=== PATIENT | male | born 1960 | race Caucasian/White ===

== ENCOUNTER 2020-07-13 07:52 | Outpatient (REF) | payer BC, SELFPAY | END 2020-07-13 07:53 | disposition home or self-care (01) | LOC: HO.LAB 07:52 | PROVIDERS: PCP Internal Medicine; Visit Provider Internal Medicine | DX: Z20.828 Contact with and (suspected) exposure to other viral communicable diseases (principal) | CPT/HCPCS: U0003 ==

== ENCOUNTER 2021-06-15 10:42 | Outpatient (REF) | payer BC, SELFPAY ==
[2021-06-15 10:44] LABS: MANUAL DIFF FLAG NO
[2021-06-15 11:11] LABS: Basophils Percent Auto 0.8 % (0-2); Eosinophils Absolute Auto 0.2 X10*3/uL (0.0-0.4); Eosinophils Percent Auto 3.9 % (0-4); Hematocrit 46.2 % (42-52); Hemoglobin 15.7 g/dl (14.0-18.0); Imm Gran Abs Auto 0.02 X10*3/uL (0.00-0.03); Imm Gran Pct Auto 0.4 % (0.0-0.4); Lymphocytes Absolute Auto 1.6 X10*3/uL (1.2-4.9); Lymphocytes Percent Auto 31.2 % (20-40); Mean Corpuscular Volume 94.1 fL (80-98); Mean Platelet Volume 11.6 fL (9.4-12.4); Monocytes Absolute Auto 0.5 X10*3/uL (0.1-1.2); Monocytes Percent Auto 9.7 % (2-11); Neutrophils Absolute Auto 2.8 X10*3/uL (2.0-8.3); Platelet Count 180 X10*3/uL (160-400); Red Blood Count 4.91 X10*6/uL (4.60-5.80); Red Cell Distribution Width 12.4 % (11.0-16.0); White Blood Count 5.2 X10*3/uL (4.8-10.8)
[2021-06-15 11:22] LABS: Estimated Average Glucose 105 mg/dL; Hemoglobin A1c % 5.3 %
[2021-06-15 11:42] LABS: Appearance Urine CLEAR; Color Urine YELLOW; Glucose Urine UA NEG (NEG); Leukocyte Esterase Urine NEG (NEG); Nitrite Urine NEG (NEG); Specific Gravity - Urine 1.025 (1.005-1.025); Urine Blood NEG (NEG); Urine Ketones NEG (NEG); Urine Protein NEG (NEG-TRACE)
[2021-06-15 11:49] LABS: Alanine Aminotransferase 30 U/L (0-40); Albumin Level 4.3 g/dL (3.5-5.0); Alkaline Phosphatase 69 U/L (39-117); Anion Gap 12 (12-20); Aspartate Amino Transferase 29 U/L (5-37); Bilirubin Total 1.8 mg/dL (0.0-1.0); Blood Urea Nitrogen 10 mg/dL (9-16); Calcium 9.5 mg/dL (8.4-10.2); Carbon Dioxide 25 mmol/L (22-29); Chloride 108 mmol/L (96-108); Cholesterol 209 mg/dL; Estimated Glomerular Filt Rate > 60; Glucose Fasting 107 mg/dL (60-99); HDL Cholesterol 64 mg/dL; LDL Cholesterol Calculated 127 mg/dl; Potassium 4.5 mmol/L (3.3-5.1); Sodium 140 mmol/L (135-145); Triglycerides 93 mg/dL
[2021-06-15 12:11] LABS: PSA,Total (Free>4and<10) 0.79 ng/mL (0.00-4.00)
[2021-06-15 12:29] LABS: Microalbum/Creatinine Ratio Ur 5.3 ug/mg cr
== END 2021-06-15 10:43 | disposition home or self-care (01) ==
LOC: HO.LNP 10:42
PROVIDERS: Visit Provider Internal Medicine
DX: Z00.00 Encounter for general adult medical examination without abnormal findings (principal); R73.03 Prediabetes; E80.4 Gilbert syndrome; I10 Essential (primary) hypertension; Z12.5 Encounter for screening for malignant neoplasm of prostate
CPT/HCPCS: 80053; 80061; 81003; 82043; 83036; 84153; 85025

== ENCOUNTER 2022-06-17 11:40 | Outpatient (REF) | payer BC, SELFPAY ==
[2022-06-17 11:46] LABS: MANUAL DIFF FLAG NO
[2022-06-17 12:06] LABS: Basophils Percent Auto 0.3 % (0-2); Eosinophils Absolute Auto 0.2 X10*3/uL (0.0-0.4); Eosinophils Percent Auto 1.9 % (0-4); Hematocrit 47.6 % (42.0-52.0); Imm Gran Abs Auto 0.03 X10*3/uL (0.00-0.03); Imm Gran Pct Auto 0.3 % (0.0-0.4); Lymphocytes Absolute Auto 1.9 X10*3/uL (1.2-4.9); Lymphocytes Percent Auto 20.8 % (20-40); Mean Corpuscular HGB Conc 33.6 g/dl (31.0-36.0); Mean Corpuscular Hemoglobin 31.3 pg (27.0-33.0); Mean Platelet Volume 11.4 fL (9.4-12.4); Monocytes Absolute Auto 0.7 X10*3/uL (0.1-1.2); Monocytes Percent Auto 7.5 % (2-11); Neutrophils Absolute Auto 6.2 x10*3/uL (2.0-8.3); Neutrophils Percent Auto 69.2 % (45-73); Platelet Count 211 X10*3/uL (160-400); Red Blood Count 5.12 X10*6/uL (4.60-5.80); Red Cell Distribution Width 12.6 % (11.0-16.0)
[2022-06-17 12:08] LABS: Appearance Urine Clear; Color Urine Yellow; Glucose Urine UA Negative (Negative); Leukocyte Esterase Urine Trace (Negative); Nitrite Urine Negative (Negative); UMIC TRIGGER UA YES; Urine Blood Negative (Negative); Urine Ketones Negative (Negative); Urine Protein Trace mg/dL (Neg-Trace)
[2022-06-17 12:11] LABS: Bacteria Urine None Seen (None Seen); Hyaline Casts Urine 0-2 /LPF (0-2); RBC Urine 0-2 /HPF (0-2); Squamous Epithelial Cell Urine 0-2 /HPF (0-2); WBC Urine 0-5 /HPF (0-5)
[2022-06-17 12:18] LABS: Alanine Aminotransferase 27 U/L (0-40); Albumin Level 4.4 g/dL (3.5-5.0); Alkaline Phosphatase 65 U/L (39-117); Anion Gap 16 (12-20); Aspartate Amino Transferase 26 U/L (5-37); Bilirubin Total 1.2 mg/dL (0.0-1.0); Blood Urea Nitrogen 11 mg/dL (9-16); Calcium 9.5 mg/dL (8.4-10.2); Carbon Dioxide 24 mmol/L (22-29); Chloride 105 mmol/L (96-108); Cholesterol 228 mg/dL; Estimated Glomerular Filt Rate > 60; Glucose Fasting 99 mg/dL (60-99); HDL Cholesterol 62 mg/dL; LDL Cholesterol Calculated 146 mg/dl; Potassium 4.6 mmol/L (3.3-5.1); Sodium 140 mmol/L (135-145); Total Protein 7.1 g/dL (6.5-8.0); Triglycerides 101 mg/dL
[2022-06-17 12:19] LABS: Estimated Average Glucose 105 mg/dL; Hemoglobin A1c % 5.3 %
[2022-06-17 12:38] LABS: PSA,Total (Free>4and<10) 0.76 ng/mL (0.00-4.00)
[2022-06-17 13:19] LABS: Creatinine Urine 178.83 mg/dL; Microalbum/Creatinine Ratio Ur 3.9 ug/mg cr
== END 2022-06-17 11:41 | disposition home or self-care (01) ==
LOC: HO.LNP 11:40
PROVIDERS: Visit Provider Internal Medicine
DX: Z00.00 Encounter for general adult medical examination without abnormal findings (principal); R73.09 Other abnormal glucose; E80.4 Gilbert syndrome; I10 Essential (primary) hypertension; Z12.5 Encounter for screening for malignant neoplasm of prostate
CPT/HCPCS: 80053; 80061; 81001; 82043; 83036; 84153; 85025

== ENCOUNTER 2023-06-20 11:15 | Outpatient (REF) | payer MEDICARE, SELFPAY | END 2023-06-20 11:16 | disposition home or self-care (01) | LOC: HO.LNP 11:15 | PROVIDERS: Visit Provider Internal Medicine | DX: Z00.00 Encounter for general adult medical examination without abnormal findings (principal); R73.03 Prediabetes; I10 Essential (primary) hypertension; Z12.5 Encounter for screening for malignant neoplasm of prostate | CPT/HCPCS: 80053; 80061; 81001; 82043; 82570; 83036; 84153; 85025 ==

== ENCOUNTER 2023-07-24 12:20 | Outpatient (REF) | payer MEDICARE, SELFPAY ==
--- NOTE | ~2023-07-24 | XR_ITS ---
EXAMINATION: Left knee CLINICAL INFORMATION: Pain COMPARISON: MRI from 11/14/2016 and radiographs from 11/10/2016 TECHNIQUE: AP bilateral weightbearing, sunrise and lateral views of left knee. Line findings: Upright weightbearing view of both knees revealed no abnormal findings. Lateral and sunrise view demonstrate enthesopathy of the patella and mild narrowing of lateral aspect of patellofemoral joint. 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
--- NOTE | ~2023-07-24 | XR_ITS ---
EXAMINATION: Left knee CLINICAL INFORMATION: Pain COMPARISON: MRI from 11/14/2016 and radiographs from 11/10/2016 TECHNIQUE: AP bilateral weightbearing, sunrise and lateral views of left knee. Line findings: Upright weightbearing view of both knees revealed no abnormal findings. Lateral and sunrise view demonstrate enthesopathy of the patella and mild narrowing of lateral aspect of patellofemoral joint. 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
== END 2023-07-24 12:21 | disposition home or self-care (01) ==
LOC: HO.HOSX 12:20
PROVIDERS: Visit Provider Orthopaedic Surgery
DX: S83.242A Other tear of medial meniscus, current injury, left knee, initial encounter (principal)
CPT/HCPCS: 73560; 73565; 99202

== ENCOUNTER 2023-07-24 12:46 | Outpatient (AMB) | payer MEDICARE, SELFPAY ==
--- NOTE | 2023-07-24 12:50 | A.OFFVIS_ITS ---
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 He was previously seen in 2017 for his left knee. Patient reports that he has had ongoing left knee pain for about 2 years now, he noticed a lump of swelling on the medial aspect of the knee that started about 1 year ago. He has increased pain with increased activity. He does not take anything for the pain. Allergies No Known Allergies [No Known Allergies*] Allergy (Unverified 05/28/20 17:01) HPI MEDICAL LOGISTICS SPECIALIST-Left knee pain HPI Details Charly is a 63 year old man who presents to discuss his left knee pain & swelling. He complains of ~2 years worsening pain with activity, along with swelling & a painful lump on the inside of his knee. He denies any prior treatment and does not take any pain medication. [facility] Social History (Updated 07/24/23 @ 13:00 by Sadie Anderson [facility]) Patient Tobacco Use Status: Never used Tobacco Current occupational status: retired Physical Exam Vital Signs: BMI result Body Mass Index 26.3 Extrem Other: Left Knee: There is mild medial tenderness to palpation left knee joint line. Negative Kira's. No effusion. Full range of motion. There is a suggestion of of parameniscal cyst that his pain less. 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 He skis and he is extremely active and he has minimal discomfort if any. He had a what seems to be a parameniscal cyst that he was curious about but that has improved. I reviewed his MRI from 01/14 years ago and discussed the fact that he likely has what is probably a worse MRI now with a meniscus tear but that he is asymptomatic and I do not think treatment is warranted. If he worsens over return to see me. Orders: Orders XR knee standing BI 07/24/23 M25.569 - Pain in unspecified knee XR knee LT 2V 07/24/23 M25.569 - Pain in unspecified knee Coding Level of Care Code New Pt Level 4 (67761) Diagnoses Medial meniscus tear S83.249A
[2023-07-24 13:00] VITALS: BMI 26.3
== END 2023-07-24 14:08 | disposition home or self-care (01) ==
PROVIDERS: PCP Internal Medicine; Visit Provider Orthopaedic Surgery
DX: S83.242A Other tear of medial meniscus, current injury, left knee, initial encounter (principal)
CPT/HCPCS: 99203

== ENCOUNTER 2024-06-25 11:01 | Outpatient (REF) | payer MEDICARE, SELFPAY ==
[2024-06-25 11:06] LABS: MANUAL DIFF FLAG NO
[2024-06-25 11:42] LABS: Basophils Absolute Auto 0.1 X10*3/uL (0.0-0.2); Basophils Percent Auto 0.7 % (0-2); Eosinophils Absolute Auto 0.5 X10*3/uL (0.0-0.4); Eosinophils Percent Auto 5.9 % (0-4); Hematocrit 51.4 % (42.0-52.0); Hemoglobin 17.6 g/dl (14.0-18.0); Imm Gran Abs Auto 0.07 X10*3/uL (0.00-0.03); Imm Gran Pct Auto 0.8 % (0.0-0.4); Mean Corpuscular HGB Conc 34.2 g/dl (31.0-36.0); Mean Corpuscular Hemoglobin 32.2 pg (27.0-33.0); Mean Corpuscular Volume 94.1 fL (80.0-98.0); Mean Platelet Volume 11.3 fL (9.4-12.4); Monocytes Percent Auto 11.4 % (2-11); Neutrophils Absolute Auto 5.1 x10*3/uL (2.0-8.3); Neutrophils Percent Auto 58.2 % (45-73); Platelet Count 219 X10*3/uL (160-400); Red Blood Count 5.46 X10*6/uL (4.60-5.80); Red Cell Distribution Width 12.5 % (11.0-16.0); White Blood Count 8.7 X10*3/uL (4.8-10.8)
[2024-06-25 11:46] LABS: Appearance Urine Clear; Color Urine Yellow; Glucose Urine UA Negative (Negative); Leukocyte Esterase Urine Negative (Negative); Nitrite Urine Negative (Negative); PH 5.5 (5.0-9.0); Urine Blood Negative (Negative); Urine Ketones Negative (Negative); Urine Protein Negative (Neg-Trace)
[2024-06-25 11:53] LABS: Estimated Average Glucose 105 mg/dL; Hemoglobin A1C 148.9438 umol/L; Hemoglobin A1c % 5.3 % (<6.0); Total Hemoglobin (HGBA1C) 4329.3021 umol/L
[2024-06-25 11:54] LABS: Bacteria Urine None Seen (None Seen); Hyaline Casts Urine 0-2 /LPF (0-2); RBC Urine 0-2 /HPF (0-2); Squamous Epithelial Cell Urine 0-2 /HPF (0-2); WBC Urine 0-5 /HPF (0-5)
[2024-06-25 11:55] LABS: Alanine Aminotransferase 31 U/L (0-40); Albumin Level 4.7 g/dL (3.5-5.0); Alkaline Phosphatase 70 U/L (39-117); Anion Gap 12 (12-20); Aspartate Amino Transferase 26 U/L (5-37); Bilirubin Total 1.4 mg/dL (0.0-1.0); Blood Urea Nitrogen 9 mg/dL (9-16); Calcium 10.4 mg/dL (8.4-10.2); Carbon Dioxide 30 mmol/L (22-29); Chloride 103 mmol/L (96-108); Cholesterol 244 mg/dL (<200); Estimated Glomerular Filt Rate > 60; Glucose Fasting 102 mg/dL (60-99); HDL Cholesterol 69 mg/dL (>40); LDL Cholesterol Calculated 148 mg/dL (<100); Potassium 4.2 mmol/L (3.3-5.1); Sodium 141 mmol/L (135-145); Triglycerides 138 mg/dL (<150)
[2024-06-25 12:10] LABS: PSA,Total (Free>4and<10) 1.11 ng/mL (0.00-4.00)
[2024-06-25 12:13] LABS: Creatinine Urine 148.18 mg/dL; Microalbum/Creatinine Ratio Ur 4.7 ug/mg cr (<30)
== END 2024-06-25 11:02 | disposition home or self-care (01) ==
LOC: HO.LNP 11:01
PROVIDERS: Visit Provider Internal Medicine
DX: Z00.00 Encounter for general adult medical examination without abnormal findings (principal); R73.09 Other abnormal glucose; I10 Essential (primary) hypertension; Z12.5 Encounter for screening for malignant neoplasm of prostate
CPT/HCPCS: 80053; 80061; 81001; 82043; 82570; 83036; 84153; 85025

== ENCOUNTER 2025-06-27 09:45 | Outpatient (REF) | payer MEDICARE, SELFPAY ==
--- OUTSIDE RECORDS SUMMARY | 2024-02-26 10:15 | XMS_ITS ---
Author Organization Gilson Holloway MD Address [address] [place] [phone] Care Team Providers Care Wildland Fire Operations Specialist Name Role Phone Gilson Holloway Primary Care Provider [phone] REASON FOR VISIT refill Medications Medication SIG (Take, Route, Frequency, Duration) Notes Start Date End Date Status Sildenafil Citrate 100 MG TAKE 1/2 TABLE T BY MOUTH EVERY DAY NEEDED Orally as needed for 60 days Active Encounters Encounter Location Date Provider Diagnosis Gilson Holloway MD [address] [place] [phone] 02/26/2024 Gilson Holloway Plan Of Treatment Medication Medication Name Sig Start Date Stop Date Notes Sildenafil Citrate 100 MG TAKE 1/2 TABLE T BY MOUTH EVERY DAY NEEDED Orally as needed for 60 days Next Appt Details Provider Name:Gilson Mojica ieyoan, 07/04/2025 02:30:00 PM, [address], Suite [facility], [place], [place], [phone], Progress Notes * Charly MISTRY VDOB:[birth year] (63 yo M)Acc No.[id number]:02/26/2024 Patient: Charly Adames V :1960 A ge:63 Y S ex:Male Address:[address] [place] [address], [place] [id number] * Refills Refill Sildenafil Citrate Tablet, 100 MG, Orally, 30, TAKE 1/2 TABLET BY MOUTH EVERY DAY NEEDED, as needed, 60 days, Refills=3 * true * Date: Generated for Km barbour/Fara/Giovanaitting on: 11:12 AM EDT
--- OUTSIDE RECORDS SUMMARY | 2024-06-25 05:15 | XMS_ITS ---
Author Organization Gilson Holloway MD Address [address] [place], [place] [phone] Care Team Providers Care Metal Mixer Name Role Phone Gilson Holloway Primary Care Provider [phone] Results Component Value Reference Range Notes Complete Blood Count Auto Di ff Reviewed date:06/26/2024 06:41:30 PM Interpretation: Performing Lab:[facility], [address] [place] [phone] Notes/Report: White Blood Count 8.7 4.8-10.8 X10*3/uL Red Blood Count 5.46 4.60-5.80 X10*6/uL Hemoglobin 17.6 14.0-18.0 g/dl Hematocrit 51.4 42.0-52.0 % Mean Corpuscular Volume 94.1 80.0-98.0 fL Mean Corpuscular Hemoglobin 32.2 27.0-33.0 pg Mean Corpuscular HGB Conc 34.2 31.0-36.0 g/dl Red Cell Distribution Width 12.5 11.0-16.0 % Platelet Count 219 160-400 X10*3/uL Mean Platelet Volume 11.3 9.4-12.4 fL Neutrophils Percent Auto 58.2 45-73 % Imm Gran Pct Auto 0.8 0.0-0.4 % Lymphocytes Percent Auto 23.0 20-40 % Monocytes Percent Auto 11.4 2-11 % Eosinophils Percent Auto 5.9 0-4 % Basophils Percent Auto 0.7 0-2 % NRBC Pct Auto 0.0 0.0-0.2 /100WBC Neutrophils Absolute Auto 5.1 2.0-8.3 x10*3/u L Imm Gran Abs Auto 0.07 0.00-0.03 X10*3/uL Lymphocytes Absolute Auto 2.0 1.2-4.9 X10*3/u L Monocytes Absolute Auto 1.0 0.1-1.2 X10*3/uL Eosinophils Absolute Auto 0.5 0.0-0.4 X10*3/u L Basophils Absolute Auto 0.1 0.0-0.2 X10*3/uL NRBC Abs Auto 0.000 0.0-0.012 X10*3/uL Comprehensive [place]. Panel Fa st Reviewed date:06/26/2024 06:40:51 PM Interpretation: Performing Lab:[facility], [address] [place] [phone] Notes/Report: Sodium 141 135-145 mmol/L Potassium 4.2 3.3-5.1 mmol/L Chloride 103 96-108 mmol/L Carbon Dioxide 30 22-29 mmol/L Anion Gap 12 12-20 Blood Urea Nitrogen 9 9-16 mg/dL Creatinine 0.88 0.5-1.4 mg/dL Estimated Glomerular Filt Rate > 60 NOTE: For -[place]ong[place] individuals, multiply the result by 1.210. Chronic Kidney Disease: Estimated GFR < 60 mL/min/1.73m2 Severe Kidney Disease: Estimated GFR < 15 mL/min/1.73m2 Glucose Fasting 102 60-99 mg/dL A fasting glucose from 100-125 mg/dl is considered impaired (pre-diabetes). Calcium 10.4 8.4-10.2 mg/dL Bilirubin Total 1.4 0.0-1.0 mg/dL Aspartate Amino Transferase 26 5-37 U/L Alanine Aminotransferase 31 0-40 U/L Total Protein 8.0 6.5-8.0 g/dL Albumin Level 4.7 3.5-5.0 g/dL Alkaline Phosphatase 70 39-117 U/L Lipid Panel Reviewed date:06/26/2024 02:16:03 PM Interpretation: Performing Lab:[address] [phone] Notes/Report: Triglycerides 138 <150 mg/dL Desirable Triglyceride: less than 150 mg/dL Borderline High Triglyceride 150-199 mg/dL High Triglyceride: 200-499 mg/dL Very High Triglyceride: greater than or equal to 5OO mg/dL Cholesterol 244 <200 mg/dL Desirable Cholesterol: less than 200 mg/dL Borderline High Cholesterol: 200-239 mg/dL High Cholesterol: greater than 239 mg/dL LDL Cholesterol Calculated 148 <100 mg/dL Desirable LDL: less than 100 mg/dL Near Optimal/Above Optimal LDL: 110-129 mg/dL Borderline High LDL: 130-159 mg/dL High LDL: 160-189 mg/dL Very High LDL: greater than or equal to 190 mg/dL HDL Cholesterol 69 >40 mg/dL Desirable HDL: greater than 40 mg/dL Note: This HDL assay may give artificially low results in patients with liver disease. PSA,Total (Free>4and<10) Reviewed date:06/26/2024 02:17:52 PM Interpretation: Performing Lab:[address] [phone] Notes/Report: PSA,Total (Free>4and<10) 1.11 0.00-4.00 ng/mL A Free PSA was not performed: The percentage of Free PSA can be used to enhance the differentiation of prostate cancer from benign prostatic disease in subjects whose PSA levels are between 4.0 and 10.0 ng/mL. For subjects whose PSA levels are below 4.0 or above 10.0 ng/mL, the risk of prostate cancer is determined on the basis of the PSA alone. Therefore the % Free PSA is recommended only for those subjects whose PSA levels are between 4.0 and 10.0 ng/mL. PSA methodology: Lr Alinity i Chemiluminescent Microparticle Immunoassay (CMIA) Microalbumin, Random Reviewed date:06/26/2024 02:17:43 PM Interpretation: Performing Lab:[facility], [address] [place] [phone] Notes/Report: Creatinine Urine 148.18 Microalbumin Urine 7.0 Microalbum/Creatinine Ratio Ur 4.7 <30 ug/mg cr Albumin/Creatinine Ratio Reference Ranges: Normal: < 30 ug/mg creatinine Microalbuminuria: 30 - 300 ug/mg creatinine Clinical Albuminuria: > 300 ug/mg creatinine Hemoglobin A1c Reviewed date:06/26/2024 02:15:42 PM Interpretation: Performing Lab:[facility], [address] [place] [phone] Notes/Report: Hemoglobin A1c % 5.3 <6.0 % Hemoglobin A1C Reference Range Adults: 4.8 - 6.0 % Non diabetic: < 6.0 % Goal: < 7.0 % Additional Action Suggested: > 8.0 % Note: Hemoglobin A1c results are invalid for patients with abnormal amounts of HbF. Blood transfusions may impact the HbA1c concentration in the patient sample. Estimated Average Glucose 105 eAG = Estimated average glucose which is %A1C expressed as average glucose, using the formula of the M2M-Frmjjab Average Glucose study (ADAG), Diabetes Care, Vol.31,#8, Apr. 2007 UA ClnCatch+Micro w/rflx Cul t Reviewed date:06/26/2024 02:19:39 PM Interpretation: Performing Lab:[facility], [address] [place] [phone] Notes/Report: Urine, Clean Catch Color Urine Yellow Appearance Urine Clear PH 5.5 5.0-9.0 Glucose Urine UA Negative Negative mg/dL Urine Blood Negative Negative Specific [place] - Urine 1.020 1.005-1.025 Urine Protein Negative Neg-Trace mg/dL Urine Ketones Negative Negative mg/dL Nitrite Urine Negative Negative Leukocyte Esterase Urine Negative Negative RBC Urine 0-2 0-2 /HPF WBC Urine 0-5 0-5 /HPF Squamous Epithelial Cell Urine 0-2 0-2 /HPF Bacteria Urine None Seen None Seen Hyaline Casts Urine 0-2 0-2 /LPF REASON FOR VISIT yearly fasting labs Medications Medication SIG (Take, Route, Frequency, Duration) Notes Start Date End Date Status Clobetasol Propionate 0.05 % 1 application to affected area Externally Twice a day for 10 day(s) 11/08/2016 Not-Taking Lisinopril-hydroCHLOROth iazide 10-12.5 MG TAKE 1 TABLET BY MOUTH EVERY DAY for 90 Active Sildenafil Citrate 100 MG TAKE 1/2 TABLET BY MOUTH EVERY DAY NEEDED Orally as needed for 60 days Active Immunizations Vaccine Route Administration Date Status Comme nts Fluarix Quadrivalent - 150 IM Intramuscular 06/25/2024 Adm inistered Encounters Encounter Location Date Provider Diagnosis Gilson Holloway MD [address] [facility] [address] [place], [place] [phone] 06/25/2024 Gilson Holloway Blood tests for routine general physical examination Z00.00 ; Prediabetes R73.09 ; Essential hypertension I10 and Encounter for immunization Z23 Assessments Encounter Date Diagnosis (ICD Code) Assessment Notes Treatment Notes Treatment Clinical Notes Section Notes 06/25/2024 Blood tests for routine general physical examination (ICD-10 - Z00.00) 06/25/2024 Prediabetes (ICD-10 - R73.09) 06/25/2024 Essential hypertension (ICD-10 - I10) 06/25/2024 Encounter for immunization (ICD-10 - Z23) Plan Of Treatment Next Appt Details Provider Name:Gilson Mojica ier, 07/04/2025 02:30:00 PM, [address], [address], [place], [place], [phone], Progress Notes * Charly MISTRY VDOB:[birth year] (64 yo M)Acc No.[id number]:06/25/2024 Progress Note Patient: Charly Adames V Provider: Marcela Holloway MD :1960 A ge:64 Y S ex:Male Date:06/25/2024 Address:[address] [place] [address] Subjective: * Chief Complaints: * Y early fasting labs * Medical History: * Surgical History: * Hospitalization/Major Diagno stic Procedure: * Medications: T akingSildenafil Citrate 100 MG Tablet TAKE 1/2 TABLET BY MOUTH EVERY DAY NEEDED Orally as neededLisinopril-hydroCHLOROthiazide 10-12.5 MG Tablet TAKE 1 TABLET BY MOUTH EVERY DAY Taking Sildenafil Citrate 100 MG Tablet TAKE 1/2 TABLET BY MOUTH EVERY DAY NEEDED Orally as neededTaking Lisinopril-hydroCHLOROthiazide 10- 12.5 MG Tablet TAKE 1 TABLET BY MOUTH EVERY DAY Not-Taking/PRNClobetasol Propionate 0.05 % Cream 1 application to affected area Externally Twice a dayNot-Taking/PRN Clobetasol Propionate 0.05 % Cream 1 application to affected area Externally Twice a day Objective: Assessment: * Assessment: 1. B lood tests for routine general physical examination - Z00.00 (Primary) 2 . P rediabetes - R73.09 3 . E ssential hypertension - I10 4 . E ncounter for immunization - Z23 Plan: * Treatment: 2. P rediabetes L AB: Complete Blood Count Auto Diff L AB: Comprehensive [place]. Panel Fast L AB: Lipid Panel L AB: PSA,Total (Free>4and<10) L AB: Microalbumin, Random L AB: Hemoglobin A1c L AB: UA ClnCatch+Micro w/rflx Cult 3. E ssential hypertension L AB: Complete Blood Count Auto Diff L AB: Comprehensive [place]. Panel Fast L AB: Lipid Panel L AB: PSA,Total (Free>4and<10) L AB: Microalbumin, Random L AB: Hemoglobin A1c L AB: UA ClnCatch+Micro w/rflx Cult * Immunizations: Fluarix Quadrivalent - 150 : 0.5 mL (Dose No:1) (Route: Intramuscular) given by Maria Fernanda Cornell on Left Deltoid * Procedure Codes: 3 6415 VENIPUNCT, ROUTINE*82771 FLU VACCINE NO PRESERV 3 & >05501 IMMUNIZATION ADMIN * * Sign off status: Completed true * Provider: Marcela Holloway MD Date: Generated for Km barbour/Fara/Mo on: 11:12 AM EDT
--- OUTSIDE RECORDS SUMMARY | 2024-07-02 08:00 | XMS_ITS ---
Author Organization Gilson Holloway MD Address [address] [place], [place] [id number] Care Team Providers Care Feather Trimmer Name Role Phone Gilson Holloway Primary Care Provider [phone] Allergies No Known Allergies Results Component Value Reference Range Notes Occult Blood, Stool, Guaiac Reviewed date:07/02/2024 04:05:34 PM Interpretation:Negative Performing Lab: Notes/Report: Negative Occult Blood, Stool, Guaiac Neg REASON FOR VISIT annual visit Medications Medication SIG (Take, Route, Frequency, Duration) Notes Start Date End Date Status Lisinopril-hydroCHLOROth iazide 10-12.5 MG TAKE 1 TABLET BY MOUTH EVERY DAY Active Sildenafil Citrate 100 MG TAKE 1/2 TABLET BY MOUTH EVERY DAY NEEDED Orally as needed for 60 days Active Clobetasol Propionate 0.05 % 1 application to affected area Externally Twice a day for 10 day(s) 11/08/2016 Not-Taking Social History Tobacco Use: Social History Observation Description Date Details (start date - stop date) Never Smoker NA - NA Tobacco Use/Smoking Question Answer Notes Patient is a nonsmoker Additional Findings: Tobacco Non-User Cu rrent non-smoker, currently using no form of tobacco Alcohol Screen Question Answer Notes Did you have a drink contain ing alcohol in the past year? Yes How often did you have a dri nk containing alcohol in the past year? Monthly or less (1 point) How many drinks did you have on a typical day when you were drinking in the past year? 1 or 2 drinks (0 point) How often did you have 6 or more drinks on one occasion in the past year? Never (0 point) Points 1 Interpretation Negative Vital Signs Blood pressure systolic 112 mm Hg 07/02/20 24 Blood pressure diastolic 70 mm Hg 024 Height 72 in 07/02/2024 Weight 193 lbs 07/02/2024 BMI 26.17 kg/m2 07/02/2024 Encounters Encounter Location Date Provider Diagnosis Gilson Holloway MD [address] [place] [phone] 07/02/2024 Gilson Holloway Essential hypertension I10 ; Annual physical exam Z00.00 ; [place] syndrome E80.4 ; Prediabetes R73.09 ; Granuloma annulare L92.0 ; Colon cancer screening Z12.11 and Depression screening Z13.31 Assessments Encounter Date Diagnosis (ICD Code) Assessment Notes Treatment Notes Treatment Clinical Notes Section Notes 07/02/2024 Essential hypertension (ICD-10 - I10) doing well, at goal, will continue current regiment 07/02/2024 Annual physical exam (ICD-10 - Z00.00) labs reviewed and discussed with patient 07/02/2024 [place] syndrome (ICD-10 - E80.4) 07/02/2024 Prediabetes (ICD-10 - R73.09) doing well. no need for medication at this time 07/02/2024 Granuloma annulare (ICD-10 - L92.0) will observe 07/02/2024 Colon cancer screening (ICD-10 - Z12.11) guaiac negative 07/02/2024 Depression screening (ICD-10 - Z13.31) negative screen Plan Of Treatment Medication Medication Name Sig Start Date Stop Date Notes Lisinopril-hydroCHLOROthiazi de 10-12.5 MG TAKE 1 TABLET BY MOUTH EVERY DAY Treatment Notes Assessment Notes Essential hypertension doing well, at go al, will continue current regiment Annual physical exam labs reviewed and d iscussed with patient Prediabetes doing well. no need for medication at this time Granuloma annulare will observe Colon cancer screening guaiac negative Depression screening negative screen Next Appt Details Follow Up: 1 Year, Reason: Provider Name:Gilson Mojica ier, 07/04/2025 02:30:00 PM, [address], [address], [place], [place], [phone], Progress Notes * Charly MISTRY VDOB:[birth year] (64 yo M)Acc No.[id number]:07/02/2024 Progress Notes Patient: Charly Adames V Provider: Marcela Holloway MD :1960 A ge:64 Y S ex:Male Date:07/02/2024 Address:[address] [place] [address] , [id number] Subjective: * Chief Complaints: * A nnual visit * HPI: D epression Screening: PHQ-9 L ittle interest or pleasure in doing things N ot at all, F eeling down, depressed, or hopeless N ot at all, T rouble falling or staying asleep, or sleeping too much N ot at all, F eeling tired or having little energy N ot at all, P oor appetite or overeating N ot at all, F eeling bad about yourself or that you are a failure, or have let yourself or your family down N ot at all, T rouble concentrating on things, such as reading the newspaper or watching television N ot at all, M oving or speaking so slowly that other people could have noticed; or the opposite, being so fidgety or restless that you have been moving around a lot more than usual N ot at all, T houghts that you would be better off or of hurting yourself in some way N ot at all, T otal Score 0 . I nterpretation and Intervention D epression Screening Findings N egative, F ollow-Up for Depression : review of PHQ-9 found negative result, no follow-up needed. C ommunication Needs: Communication Needs D oes the patient have a hearing impairment N o, D oes the patient have a vision impairment? Y es, I f yes, what is the vision impairment? G lasses, D oes the patient have a cognition impairment? N o. F all Risk: History H ave you had any falls with injury in the past year? N o, H ave you had two or more falls in the past year? N o. S HANSEL Questions: SDOH Questions I n the past year have you been worried about losing housing? N o, I n the past year have you or any family members you live with been unable to get any of the following when it was really needed? Check all that apply: N one. S ymptom(s): patient is a 64 yo male here for annual visit with review of recent labs and follow up of chronic issues. * ROS: G eneral/Constitutional: Patient denies f atigue , headache. C hange in appetite?denies. C hills d enies. F ever d enies. O phthalmologic: Blurred vision d enies. D ischarge d enies. P ain d enies. E NT: Patient denies d ecreased sense of smell , any loss of taste , sore throat. D ecreased hearing d enies. S ore throat d enies. S wollen glands d enies. E ndocrine: Cold intolerance d enies. E xcessive thirst d enies. H eat intolerance d enies. W eight loss d enies. R espiratory: Cough d enies. S hortness of breath at rest d enies. S hortness of breath with exertion d enies. W heezing d enies. C ardiovascular: Chest pain at rest d enies. C hest pain with exertion?denies. I rregular heartbeat d enies. S hortness of breath d enies. ? G astrointestinal: Abdominal pain d enies. C hange in bowel habits d enies. D iarrhea d enies. N ausea d enies. R ectal bleeding d enies. V omiting d enies . G enitourinary: Blood in urine d enies. D ifficulty urinating d enies. F requent urination d enies. M usculoskeletal: Patient denies m uscle aches. P ainful joints d enies. W eakness d enies. P eripheral Vascular: Patient denies r ed and blue toes. S kin: Dry skin d enies. I tching d enies. D enies?Mole(s), changes in moles, new moles or any lesions of concern. D enies P hotosensitivity. R jordi d enies. N eurologic: Dizziness d enies. F ainting d enies. H eadache?denies. * Medical History: * Surgical History: * Hospitalization/Major Diagno stic Procedure: * Family History: F ather: alive 86 yrs, diagnosed with Diabetes. M other: alive 84 yrs. 3 brother(s) , 2 sister(s) . 1 son(s) , 1 daughter(s) . . Mother-Healthy Alcoholism extended family No mental illness Sister and brother alcoholics, Denies mental health/substance abuse family history, Denies mental health/substance abuse family history. * Social History: T obacco Use: T obacco Use/Smoking P atient is a n onsmoker, A dditional Findings: Tobacco Non-User C urrent non-smoker, currently using no form of tobacco. D rugs/Alcohol: A lcohol Screen D id you have a drink containing alcohol in the past year? Y es, H ow often did you have a drink containing alcohol in the past year? M onthly or less (1 point), H ow many drinks did you have on a typical day when you were drinking in the past year? 1 or 2 drinks (0 point), H ow often did you have 6 or more drinks on one occasion in the past year? N ever (0 point), P oints 1 , I nterpretation N egative. M iscellaneous: C affeine: yes, frequency:, 1-2 cups per day. Children: yes. no Community involvements. Exercise: yes, rower free weights 5 days a week. Housing: owning. Living with: spouse. Marital status: . Occupation: works full-time. Pets: none. Travel outside of the [place]: yes, [place] and [place]. * Medications: T akingSildenafil Citrate 100 MG [...] application to affected area Externally Twice a dayMedication List reviewed and reconciled with the patientNot-Taking/PRN Clobetasol Propionate 0.05 % Cream 1 application to affected area Externally Twice a dayMedication List reviewed and reconciled with the patient * Allergies: N .K.D.A.yes[Allergies Verified] Objective: * Vitals: H t: 72, Wt: 193, BMI:26.17, BP:112/70, Wt-k.54. * P ast Orders: L ab:Lipid Panel (Order Date - 06/25/2024) (Collection Date - 06/25/2024) Value Reference Range Triglycerides 138 <150 - mg/dL Cholesterol 244 H <200 - mg/dL LDL Cholesterol Calculated 148 H <100 - mg/dL HDL Cholesterol 69 >40 - mg/dL L ab:PSA,Total (Free>4and<10) (Order Date - 06/25/2024) (Collection Date - 06/25/2024) Value Reference Range PSA,Total (Free>4and<10) 1.11 0.00-4.00 - ng/ mL L ab:Microalbumin, Random (Order Date - 06/25/2024) (Collection Date - 06/25/2024) Value Reference Range Creatinine Urine 148.18 - mg/dL Microalbumin Urine 7.0 - mg/L Microalbum Creatinine Ratio Ur 4.7 <30 - ug/ mg cr L ab:Hemoglobin A1c (Order Date - 06/25/2024) (Collection Date - 06/25/2024) Value Reference Range Hemoglobin A1c % 5.3 <6.0 - % Estimated Average Glucose 105 - mg/dL L ab:Complete Blood Count Auto Diff (Order Date - 06/25/2024) (Collection Date - 06/25/2024) Value Reference Range White Blood Count 8.7 4.8-10.8 - X10*3/uL Red Blood Count 5.46 4.60-5.80 - X10*6/uL Hemoglobin 17.6 14.0-18.0 - g/dl Hematocrit 51.4 42.0-52.0 - % Mean Corpuscular Volume 94.1 80.0-98.0 - fL Mean Corpuscular Hemoglobin 32.2 27.0-33.0 - pg Mean Corpuscular HGB Conc 34.2 31.0-36.0 - g/ dl Red Cell Distribution Width 12.5 11.0-16.0 - % Platelet Count 219 160-400 - X10*3/uL Mean Platelet Volume 11.3 9.4-12.4 - fL Neutrophils Percent Auto 58.2 45-73 - % Imm Gran Pct Auto 0.8 H 0.0-0.4 - % Lymphocytes Percent Auto 23.0 20-40 - % Monocytes Percent Auto 11.4 H 2-11 - % Eosinophils Percent Auto 5.9 H 0-4 - % Basophils Percent Auto 0.7 0-2 - % NRBC Pct Auto 0.0 0.0-0.2 - /100WBC Neutrophils Absolute Auto 5.1 2.0-8.3 - x10* 3/uL Imm Gran Abs Auto 0.07 H 0.00-0.03 - X10*3/uL Lymphocytes Absolute Auto 2.0 1.2-4.9 - X10* 3/uL Monocytes Absolute Auto 1.0 0.1-1.2 - X10*3/ uL Eosinophils Absolute Auto 0.5 H 0.0-0.4 - X10* 3/uL Basophils Absolute Auto 0.1 0.0-0.2 - X10*3/ uL NRBC Abs Auto 0.000 0.0-0.012 - X10*3/uL L ab:UA ClnCatch+Micro w/rflx Cult (Order Date - 06/25/2024) (Collection Date - 06/25/2024) Value Reference Range Color Urine Yellow - Appearance Urine Clear - PH 5.5 5.0-9.0 - Glucose Urine UA Negative Negative - mg/dL Urine Blood Negative Negative - Specific Enigma - Urine 1.020 1.005-1.025 - Urine Protein Negative Neg-Trace - mg/dL Urine Ketones Negative Negative - mg/dL Nitrite Urine Negative Negative - Leukocyte Esterase Urine Negative Negative - RBC Urine 0-2 0-2 - /HPF WBC Urine 0-5 0-5 - /HPF Squamous Epithelial Cell Urine 0-2 0-2 - /HP F Bacteria Urine None Seen None Seen - Hyaline Casts Urine 0-2 0-2 - /LPF L ab:Comprehensive Lincoln. Panel Fast (Order Date - 06/25/2024) (Collection Date - 06/25/2024) Value Reference Range Sodium 141 135-145 - mmol/L Bilirubin Total 1.4 H 0.0-1.0 - mg/dL Aspartate Amino Transferase 26 5-37 - U/L Alanine Aminotransferase 31 0-40 - U/L Total Protein 8.0 6.5-8.0 - g/dL Albumin Level 4.7 3.5-5.0 - g/dL Alkaline Phosphatase 70 39-117 - U/L Potassium 4.2 3.3-5.1 - mmol/L Chloride 103 96-108 - mmol/L Carbon Dioxide 30 H 22-29 - mmol/L Anion Gap 12 12-20 - Blood Urea Nitrogen 9 9-16 - mg/dL Creatinine 0.88 0.5-1.4 - mg/dL Estimated Glomerular Filt Rate > 60 - Glucose Fasting 102 H 60-99 - mg/dL Calcium 10.4 H 8.4-10.2 - mg/dL * Examination: G eneral Examination: GENERAL APPEARANCE: w ell developed, well nourished, in no acute distress. HEAD: n ormocephalic, atraumatic. EYES: p upils equal, round, reactive to light and accommodation, sclera non-icteric. EARS: n ormal. ORAL CAVITY: m ucosa moist. THROAT: c lear. NECK/THYROID: n felicity supple, full range of motion, no cervical lymphadenopathy, no bruits. SKIN: w arm and dry, no suspicious lesions , abnormal with a lesion on hand. which appears to be a scar. HEART: r egular rate and rhythm, S1, S2 normal, no murmurs.? LUNGS: c lear to auscultation bilaterally. ABDOMEN: s oft, nontender, nondistended, bowel sounds present, normal, no organomegaly , no masses palpable. RECTAL EXAM: n ormal tone, no external hemorrhoids, no masses palpable, prostate normal, stool guaiac negative. MALE GENITOURINARY: c ircumcised, no penile lesions or discharge, no testicular mass, testes descended bilaterally. EXTREMITIES: n o clubbing, cyanosis, or edema. NEUROLOGIC: n onfocal, motor strength normal upper and lower extremities, sensory exam intact. Assessment: * Assessment: 1. A nnual physical exam - Z00.00 (Primary) 2 . E ssential hypertension - I10 3 .?[place] syndrome - E80.4 4 . P rediabetes - R73.09 5 . G ranuloma annulare - L92.0 6 . C olon cancer screening - Z12.11 7 . D epression screening - Z13.31 Plan: * Treatment: 2. E ssential hypertension Continue Lisinopril-hydroCHLOROthiazide Tablet, 10-12.5 MG, TAKE 1 TABLET BY MOUTH EVERY DAY. ? Notes: doing well, at goal, will continue current regiment 3. P rediabetes Notes: doing well. no need for medication at this time 4. G ranuloma annulare Notes: will observe 5. C olon cancer screening L AB: Occult Blood, Stool, Guaiac N egative Value Reference Range O ccult Blood, Stool, Guaiac Neg Notes: guaiac negative??6.?Depression screening? Notes: negative screen?? * Procedure Codes: 8 2270 TEST FOR BLOOD, FECES * Follow Up: 1 Year * * Sign off status: Completed true * Provider: Marcela Holloway MD Date: Generated for Km barbour/Fara/Lisasmitting on: 11:13 AM EDT History and Physical Notes * HPI (History of Present Illness) Category Sub-Category Detail Notes Category Not es Symptom(s) patient is a 64 yo male here for annual visit with review of recent labs and follow up of chronic issues. Depression Screening PHQ-9 Little inte rest or pleasure in doing things: Not at all Feeling down, depressed, or hopeless: No t at all Trouble falling or staying asleep, or sl eeping too much: Not at all Feeling tired or having little energy: N ot at all Poor appetite or overeating: Not at all Feeling bad about yourself o r that you are a failure, or have let yourself or your family down: Not at all Trouble concentrating on thi ngs, such as reading the newspaper or watching television: Not at all Moving or speaking so slowly that other people could have noticed; or the opposite, being so fidgety or restless that you have been moving around a lot more than usual: Not at all Thoughts that you would be b jonathon off or of hurting yourself in some way: Not at all Total Score: 0 Interpretation and Intervention Depression Ruben jerez Findings: Negative Follow-Up for Depression: : review of PH Q-9 found negative result, no follow-up needed SDOH Questions SDOH Questions In the past year have you been worried about losing housing?: No In the past year have you or any family members you live with been unable to get any of the following when it was really needed? Check all that apply:: None Fall Risk History Have you had any falls with injury i n the past year?: No Have you had two or more falls in the st year?: No Communication Needs Communication Needs Does the patient have a hearing impairment: No Does the patient have a vision impairmen t?: Yes If yes, what is the vision impairment?: Glasses Does the patient have a cognition impair ment?: No Examination Category Sub-Category Detail Notes Category Not es General Examination GENERAL APPEARANCE: well dev eloped, well nourished, in no acute distress HEAD: normocephalic, atrau matic EYES: pupils equal, round, reactive to light and accommodation, sclera non-icteric EARS: normal THROAT: clear NECK/THYROID: neck supple, full ra nge of motion, no cervical lymphadenopathy, no bruits HEART: regular rate and rhy thm, S1, S2 normal, no murmurs LUNGS: clear to auscultatio n bilaterally ABDOMEN: soft, nontender, non distended, bowel sounds present, normal, no organomegaly , no masses palpable NEUROLOGIC: nonfocal, motor stre ngth normal upper and lower extremities, sensory exam intact SKIN: warm and dry, no dana picious lesions , abnormal with a lesion on hand. which appears to be a scar EXTREMITIES: no clubbing, cyanosi s, or edema MALE GENITOURINARY: circumcised, no peni le lesions or discharge, no testicular mass, testes descended bilaterally RECTAL EXAM: normal tone, no exte rnal hemorrhoids, no masses palpable, prostate normal, stool guaiac negative ORAL CAVITY: mucosa moist
--- OUTSIDE RECORDS SUMMARY | 2024-07-23 06:10 | XMS_ITS ---
Author Organization Gilson Holloway MD Address [address] [place] [phone] Care Team Providers Care Steamer Blocker Name Role Phone Gilson Holloway Primary Care Provider REASON FOR VISIT refill Medications Medication SIG (Take, Route, Frequency, Duration) Notes Start Date End Date Status Lisinopril-hydroCHLOROthia zide 10-12.5 MG TAKE 1 TABLET BY MOUTH EVERY DAY Orally Once a day for 90 days Active Encounters Encounter Location Date Provider Diagnosis Gilson Holloway MD [address] [place] [phone] 07/23/2024 Gilson Holloway Essential hypertension I10 Assessments Encounter Date Diagnosis (ICD Code) Assessment Notes Treatment Notes Treatment Clinical Notes Section Notes 07/23/2024 Essential hypertension (ICD-10 - I10) Plan Of Treatment Medication Medication Name Sig Start Date Stop Date Notes Lisinopril-hydroCHLOROthiazi de 10-12.5 MG TAKE 1 TABLET BY MOUTH EVERY DAY Orally Once a day for 90 days Next Appt Details Provider Name:Gilson langford, 07/04/2025 02:30:00 PM, [address], [address] [place] [address], [phone], Progress Notes * Charly MISTRY VDOB:[birth year] (64 yo M)Acc No.[id number]:07/23/2024 Patient: Chrystal fonseca Charly [place] :1960 A ge:64 Y S ex:Male Address:[address] [place] [address] , [place] [address] * Refills Refill Lisinopril-hydroCHLOROthiazide Tablet, 10-12.5 MG, Orally, 90, TAKE 1 TABLET BY MOUTH EVERY DAY, Once a day, 90 days, Refills=3 * true * Date: Generated for Km barbour/Fara/Giovanaitting on: 1 11:13 AM EDT
--- OUTSIDE RECORDS SUMMARY | 2024-07-26 07:03 | XMS_ITS ---
Author Organization Gilson Holloway MD Address [address] [place] [phone] Care Team Providers Care Knit Goods Press Hand Name Role Phone Gilson Holloway Primary Care Provider [phone] REASON FOR VISIT RF Medications Medication SIG (Take, Route, Frequency, Duration) Notes Start Date End Date Status Lisinopril-hydroCHLOROthia zide 10-12.5 MG TAKE 1 TABLET BY MOUTH EVERY DAY Orally Once a day for 90 days Active Encounters Encounter Location Date Provider Diagnosis Gilson Holloway MD [address] [place] [phone] 07/26/2024 Gilson Holloway Essential hypertension I10 Assessments Encounter Date Diagnosis (ICD Code) Assessment Notes Treatment Notes Treatment Clinical Notes Section Notes 07/26/2024 Essential hypertension (ICD-10 - I10) Plan Of Treatment Medication Medication Name Sig Start Date Stop Date Notes Lisinopril-hydroCHLOROthiazi de 10-12.5 MG TAKE 1 TABLET BY MOUTH EVERY DAY Orally Once a day for 90 days Next Appt Details Provider Name:Gilson langford, 07/04/2025 02:30:00 PM, [address], [address] [place] [address], [phone], Progress Notes * Charly MISTRY VDOB:[birth year] (64 yo M)Acc No.[id number]:07/26/2024 Patient: Chrystal conniealexiCharly Tyler :1960 A ge:64 Y S ex:Male Address:[address] [place] [address] , [place] [address] * Refills Refill Lisinopril-hydroCHLOROthiazide Tablet, 10-12.5 MG, Orally, 90, TAKE 1 TABLET BY MOUTH EVERY DAY, Once a day, 90 days, Refills=4 * true * Date: Generated for Km barbour/Fara/Mo on: 1 11:12 AM EDT
--- OUTSIDE RECORDS SUMMARY | 2025-06-27 03:15 | XMS_ITS ---
Author Organization Gilosn Holloway MD Address [address] [place], [place] [id number] Care Team Providers Care Photocopying Machine Operator Name Role Phone Gilson Holloway Primary Care Provider [phone] Results Component Value Reference Range Notes Complete Blood Count Auto Di ff (Not yet reviewed by provider) Interpretation: Performing Lab:[facility], [address] [place] [phone] Notes/Report: White Blood Count 6.2 4.8-10.8 X10*3/uL Red Blood Count 5.08 4.60-5.80 X10*6/uL Hemoglobin 16.2 14.0-18.0 g/dl Hematocrit 47.8 42.0-52.0 % Mean Corpuscular Volume 94.1 80.0-98.0 fL Mean Corpuscular Hemoglobin 31.9 27.0-33.0 pg Mean Corpuscular HGB Conc 33.9 31.0-36.0 g/dl Red Cell Distribution Width 12.5 11.0-16.0 % Platelet Count 212 160-400 X10*3/uL Mean Platelet Volume 11.4 9.4-12.4 fL Neutrophils Percent Auto 42.8 45-73 % Imm Gran Pct Auto 1.0 0.0-0.4 % Lymphocytes Percent Auto 38.9 20-40 % Monocytes Percent Auto 9.5 2-11 % Eosinophils Percent Auto 6.8 0-4 % Basophils Percent Auto 1.0 0-2 % NRBC Pct Auto 0.0 0.0-0.2 /100WBC Neutrophils Absolute Auto 2.7 2.0-8.3 x10*3/u L Imm Gran Abs Auto 0.06 0.00-0.03 X10*3/uL Lymphocytes Absolute Auto 2.4 1.2-4.9 X10*3/u L Monocytes Absolute Auto 0.6 0.1-1.2 X10*3/uL Eosinophils Absolute Auto 0.4 0.0-0.4 X10*3/u L Basophils Absolute Auto 0.1 0.0-0.2 X10*3/uL NRBC Abs Auto 0.000 0.0-0.012 X10*3/uL Hemoglobin A1c (Not yet revi ewed by provider) Interpretation: Performing Lab:[address] [phone] Notes/Report: Hemoglobin A1c % 5.5 <6.0 % Hemoglobin A1C Reference Range Adults: 4.8 - 6.0 % Non diabetic: < 6.0 % Goal: < 7.0 % Additional Action Suggested: > 8.0 % Note: Hemoglobin A1c results are invalid for patients with abnormal amounts of HbF. Blood transfusions may impact the HbA1c concentration in the patient sample. Estimated Average Glucose 111 eAG = Estimated average glucose which is %A1C expressed as average glucose, using the formula of the [id number]-Ccomyzp Average Glucose study (ADAG), Diabetes Care, Vol.31,#8, 2007 UA ClnCatch+Micro w/rflx Cul t (Not yet reviewed by provider) Interpretation: Performing Lab:[address] [phone] Notes/Report: [id number] 0715 Urine, Clean Catch Color Urine Yellow Appearance Urine Cloudy PH 7.5 5.0-9.0 Glucose Urine UA Negative Negative mg/dL Urine Blood Negative Negative Specific [place]anning - Urine 1.015 1.005-1.025 Urine Protein Negative Neg-Trace mg/dL Urine Ketones Negative Negative mg/dL Nitrite Urine Negative Negative Leukocyte Esterase Urine Negative Negative RBC Urine 0-2 0-2 /HPF WBC Urine 0-5 0-5 /HPF Squamous Epithelial Cell Urine 0-2 0-2 /HPF Bacteria Urine None Seen None Seen Hyaline Casts Urine 0-2 0-2 /LPF REASON FOR VISIT yearly fasting labs Immunizations Vaccine Route Administration Date Status Comme nts Fluarix Quadrivalent - 150 IM Intramuscular 06/27/2025 Adm inistered Encounters Encounter Location Date Provider Diagnosis Gilson Holloway MD [address] [place] [address] Drive [address] [place] [phone] 06/27/2025 Gilson Holloway Blood tests for routine general physical examination Z00.00 ; Prediabetes R73.09 ; Essential hypertension I10 and Encounter for administration of vaccine Z23 Assessments Encounter Date Diagnosis (ICD Code) Assessment Notes Treatment Notes Treatment Clinical Notes Section Notes 06/27/2025 Blood tests for routine general physical examination (ICD-10 - Z00.00) 06/27/2025 Prediabetes (ICD-10 - R73.09) 06/27/2025 Essential hypertension (ICD-10 - I10) 06/27/2025 Encounter for administration of vaccine (ICD-10 - Z23) Plan Of Treatment Pending Test Test Name Order Date Complete Blood Count Auto Diff Comprehensive [place]. Panel Fast Lipid Panel 06/27/2025 PSA,Total (Free>4and<10) 06/27/2025 Microalbumin, Random 06/27/2025 Hemoglobin A1c 06/27/2025 UA ClnCatch+Micro w/rflx Cult 06/27/2025 Next Appt Details Provider Name:Gilson Mojica ier, 07/04/2025 02:30:00 PM, [address] [facility], [address], [place], [place], [phone], Progress Notes * Charly MISTRY VDOB:[birth year] (65 yo M)Acc No.[id number]:06/27/2025 Progress Note Patient: Charly ADAMS V Provider: Marcela Holloway MD :1960 A ge:65 Y S ex:Male Date:06/27/2025 Address:[address] [place] [address] Rd , [id number] Subjective: * Chief Complaints: * 1 . Yearly fasting labs. * Medical History: Objective: * Vitals: Assessment: * Assessment: 1. B lood tests for routine general physical examination - Z00.00 (Primary) 2 .?Prediabetes - R73.09 3 . E ssential hypertension - I10 4 .?Encounter for administration of vaccine - Z23 Plan: * Treatment: 2. P rediabetes L AB: Complete Blood Count Auto Diff (Collection Date & Time - 06/27/2025 07:15 AM) L AB: Comprehensive [place]. Panel Fast L AB: Lipid Panel L AB: PSA,Total (Free>4and<10) L AB: Microalbumin, Random L AB: Hemoglobin A1c (Collection Date & Time - 06/27/2025 07:15 AM) L AB: UA ClnCatch+Micro w/rflx Cult (Collection Date & Time - 06/27/2025 07:15 AM) 3. E ssential hypertension L AB: Complete Blood Count Auto Diff (Collection Date & Time - 06/27/2025 07:15 AM) L AB: Comprehensive [place]. Panel Fast L AB: Lipid Panel L AB: PSA,Total (Free>4and<10) L AB: Microalbumin, Random L AB: Hemoglobin A1c (Collection Date & Time - 06/27/2025 07:15 AM) L AB: UA ClnCatch+Micro w/rflx Cult (Collection Date & Time - 06/27/2025 07:15 AM) * Immunizations: Fluarix Quadrivalent - 150 : 0.5 mL (Dose No:1) (Route: Intramuscular) given by Maria Fernanda Cornell , Office Staff on Left Deltoid * Procedure Codes: 3 6415 VENIPUNCT, ROUTINE*, 13190 FLU VACCINE NO PRESERV 3 & >, [address] IMMUNIZATION ADMIN * * The named appointment provid er may or may not be the originator of this progress note, and it is not deemed complete until electronically signed by the appointment provider. Sign off status: Pending * Provider: Marcela Holloway MD Date: 1 Generated for Km barbour/Fara/Giovanaitting on: 11:13 AM EDT
[2025-06-27 09:49] LABS: MANUAL DIFF FLAG NO
[2025-06-27 10:14] LABS: Appearance Urine Cloudy; Glucose Urine UA Negative (Negative); PH 7.5 (5.0-9.0); Specific Gravity - Urine 1.015 (1.005-1.025)
[2025-06-27 10:20] LABS: Hematocrit 47.8 % (42.0-52.0); Hemoglobin 16.2 g/dl (14.0-18.0); Imm Gran Abs Auto 0.06 X10*3/uL (0.00-0.03); Imm Gran Pct Auto 1.0 % (0.0-0.4); Lymphocytes Absolute Auto 2.4 X10*3/uL (1.2-4.9); Mean Corpuscular HGB Conc 33.9 g/dl (31.0-36.0); Mean Corpuscular Hemoglobin 31.9 pg (27.0-33.0); Mean Corpuscular Volume 94.1 fL (80.0-98.0); NRBC Abs Auto 0.000 X10*3/uL (0.0-0.012); NRBC Pct Auto 0.0 /100WBC (0.0-0.2); Platelet Count 212 X10*3/uL (160-400); Red Blood Count 5.08 X10*6/uL (4.60-5.80); White Blood Count 6.2 X10*3/uL (4.8-10.8)
[2025-06-27 10:34] LABS: Hemoglobin A1C 151.0146 umol/L
--- OUTSIDE RECORDS SUMMARY | 2025-06-27 11:12 | XMS_ITS | Patient Health Record ---
Author Organization Gilson Holloway MD Address [address] [place], [place] [phone] Care Team Providers Care Business Office Representative Name Role Phone Gilson Holloway Primary Care Provider Allergies No Known Allergies Results Component Value Reference Range Notes Complete Blood Count Auto Di ff (Not yet reviewed by provider) Interpretation: Performing Lab:[facility], [address] [place] [phone] Notes/Report: White Blood Count 6.2 4.8-10.8 X10*3/uL [...] yet revi ewed by provider) Interpretation: Performing Lab:[address] [phone] Notes/Report: Hemoglobin A1c % 5.5 <6.0 % [...] average glucose, using the formula of the N3J-Lbqlskq Average Glucose study (ADAG), Diabetes Care, Vol.31,#8, 2007 UA ClnCatch+Micro w/rflx Cul t (Not yet reviewed by provider) Interpretation: Performing Lab:[address] [phone] Notes/Report: [id number] 0715 Urine, Clean Catch Color Urine Yellow Appearance Urine Cloudy PH 7.5 5.0-9.0 Glucose Urine UA Negative Negative mg/dL Urine Blood Negative Negative Specific Muse - Urine 1.015 1.005-1.025 Urine Protein Negative Neg-Trace mg/dL Urine Ketones Negative Negative mg/dL Nitrite Urine Negative Negative Leukocyte Esterase Urine Negative Negative RBC Urine 0-2 0-2 /HPF WBC Urine 0-5 0-5 /HPF Squamous Epithelial Cell Urine 0-2 0-2 /HPF Bacteria Urine None Seen None Seen Hyaline Casts Urine 0-2 0-2 /LPF Occult Blood, Stool, Guaiac Reviewed date:07/02/2024 04:05:34 PM Interpretation:Negative Performing Lab: Notes/Report: Negative Occult Blood, Stool, Guaiac Neg Reason For Referral No Information Medications Medication SIG (Take, Route, Frequency, Duration) Notes Start Date End Date Status Sildenafil Citrate 100 MG TAKE 1/2 TABLET BY MOUTH EVERY DAY NEEDED Orally as needed for 60 days Active Clobetasol Propionate 0.05 % 1 application to affected area Externally Twice a day for 10 day(s) 11/08/2016 Not-Taking Lisinopril-hydroCHLOROth iazide 10-12.5 MG TAKE 1 TABLET BY MOUTH EVERY DAY Orally Once a day for 90 days Active Immunizations Vaccine Route Administration Date Status Comme nts Fluarix Quadrivalent IM Intramuscular 05/28/2018 Administe red Shingrix IM Intramuscular 06/07/2018 Administered Shingrix IM Intramuscular 08/06/2018 Administered Fluarix Quadrivalent IM Intramuscular 06/10/2019 Administe red Fluarix Quadrivalent IM Intramuscular 06/16/2020 Administe red Fluarix Quadrivalent IM Intramuscular 06/15/2021 Administe red SARS-COV-2 Pfizer Unknown 12/09/2020 Administered SARS-COV-2 Pfizer Unknown 12/30/2020 Administered Fluarix Quadrivalent IM Intramuscular 06/17/2022 Administe red Fluarix Quadrivalent IM Intramuscular 06/20/2023 Administe red Fluarix Quadrivalent - 150 IM Intramuscular 06/25/2024 Adm inistered Fluarix Quadrivalent - 150 IM Intramuscular 06/27/2025 Adm inistered Fluarix Quadrivalent Unknown 05/10/2016 Refused Fluarix Quadrivalent Unknown 05/16/2017 Refused PPSV23 (Pnemovax) Unknown 12/03/2018 Refused PPSV23 (Pnemovax) Unknown 06/23/2020 Refused TDaP Unknown 06/23/2020 Refused Social History Tobacco Use: Social History Observation [...] Never (0 point) Points 1 Interpretation Negative Problems Problem Type SNOMED Code ICD Code Onset Dates Problem Status W/U Status Risk Notes Problem 663613898 Tubular adenoma of colon (D12.6) Active confirmed Problem 08043350 Essential hypertension (I10) Active confirmed Problem 4594929 Prediabetes (R73.09) Active confirmed Problem 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 Vital Signs Blood pressure diastolic 70 mm Hg 07/02/2024 Height 72 in 07/02/2024 Blood pressure systolic 112 mm Hg 07/02/2024 Weight 193 lbs 07/02/2024 BMI 26.17 kg/m2 07/02/2024 Encounters Encounter Location Date Provider Diagnosis Gilson Holloway MD [address] [place] [phone] 06/27/2025 Gilson Holloway Blood tests for routine general physical examination Z00.00 ; Prediabetes R73.09 ; Essential hypertension I10 and Encounter for administration of vaccine Z23 Gilson Holloway MD [address] [place] [phone] 07/02/2024 Gilson Holloway Essential hypertensi on I10 ; Annual physical exam Z00.00 ; Bombay syndrome E80.4 ; Prediabetes R73.09 ; Granuloma annulare L92.0 ; Colon cancer screening Z12.11 and Depression screening Z13.31 Gilson Holloway MD [address] [place] [phone] 07/23/2024 Gilson Holloway Essential hypertensi on I10 Gilson Holloway MD [address] [place] [phone] 07/26/2024 Gilson Holloway Essential hypertensi on I10 Assessments Encounter Date Diagnosis (ICD Code) Assessment Notes Treatment Notes Treatment Clinical Notes Section Notes 06/27/2025 Blood tests for routine general physical examination (ICD-10 - Z00.00) 06/27/2025 Prediabetes (ICD-10 - R73.09) 07/02/2024 Essential hypertension (ICD-10 - I10) doing well, at goal, will continue current regiment 07/02/2024 Annual physical exam (ICD-10 - Z00.00) labs reviewed and discussed with patient 07/23/2024 Essential hypertension (ICD-10 - I10) 07/26/2024 Essential hypertension (ICD-10 - I10) 06/27/2025 Essential hypertension (ICD-10 - I10) 07/02/2024 Bombay syndrome (ICD-10 - 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 no need for medication at this time 07/02/2024 Granuloma annulare (ICD-10 - L92.0) will observe 07/02/2024 Colon cancer screening (ICD-10 - Z12.11) guaiac negative 07/02/2024 Depression screening (ICD-10 - Z13.31) negative screen Plan Of Treatment Pending Test Test Name Order Date Complete Blood Count Auto Diff Comprehensive [place]. Panel Fast Lipid Panel 06/27/2025 PSA,Total (Free>4and<10) 06/27/2025 Microalbumin, Random 06/27/2025 Hemoglobin A1c 06/27/2025 UA ClnCatch+Micro w/rflx Cult 06/27/2025 Next Appt Details Provider Name:Gilson langford, 07/04/2025 02:30:00 PM, [address] [place] [address], [facility] [address], [place], [place], [phone], Insurance Providers Payer Name Payer Address Payer Phone Subscriber Number Group Number Insured Name Patient Relationship to Insured Coverage Start Date Coverage End Date [employer] [address] [place], [place] [phone] [id number] Aletha Mistry Self - patient is the insured Medical (General) History Medical History History ICD Code colonoscopy 2008; colonoscop y done 09/19/[address] Fajardo - repeat 5 years; colonoscopy done 11/25/[address] Fajardo - repeat 10 years
--- OUTSIDE RECORDS SUMMARY | 2025-06-27 11:13 | XMS_ITS | Patient Health Record ---
Author Organization [facility] Address [address] [place] [address] Care Team Providers Care Supervisor Statement Clerks Name Role Phone Jewel DAS, Gilson Primary Care Provider Med Chaparro Unavailable [phone] Reason For Referral No Information Medications Medication SIG (Take, Route, Frequency, Duration) Notes Start Date End Date Status Lisinopril Active Immunizations Vaccine Route Administration Date Status Comme nts Influenza Unknown 06/11/2019 Administered Problems Problem Type SNOMED Code ICD Code Onset Dates Problem Status W/U Status Risk Notes Problem Screening for malignant neoplasm of colon (542831727) Encounter for screening for malignant neoplasm of colon (Z12.11) Active confirmed Problem History of adenomatous polyp of colon (056034444) History of adenomatous polyp of colon (Z86.010) Active confirmed Problem Preprocedural examination (297496399128289) Preprocedural examination (Z01.818) Active confirmed Plan Of Treatment Future Test Test Name Order Date COLONOSCOPY 06/26/2014 COLONOSCOPY 09/05/2019 Insurance Providers Payer Name Payer Address Payer Phone Subscriber Number Group Number Insured Name Patient Relationship to Insured Coverage Start Date Coverage End Date [facility] [address] [place], [place] [id number] FELI MISTRY Self - patient is the insured Medical (General) History Medical History History ICD Code Colonoscopy 04-24-2009--1 sma ll tubular adenoma removed; F/U colonoscopy in 09/2014 was negative 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
[2025-06-27 12:36] LABS: Alanine Aminotransferase 42 U/L (0-40); Albumin Level 4.6 g/dL (3.5-5.0); Alkaline Phosphatase 70 U/L (39-117); Anion Gap 13 (12-20); Aspartate Amino Transferase 32 U/L (5-37); Blood Urea Nitrogen 12 mg/dL (9-16); Calcium 9.7 mg/dL (8.4-10.2); Carbon Dioxide 27 mmol/L (22-29); Chloride 105 mmol/L (96-108); Cholesterol 231 mg/dL (<200); Estimated Glomerular Filt Rate > 60; HDL Cholesterol 68 mg/dL (>40); Potassium 4.6 mmol/L (3.3-5.1); Sodium 140 mmol/L (135-145); Total Protein 7.3 g/dL (6.5-8.0); Triglycerides 84 mg/dL (<150)
[2025-06-27 14:06] LABS: PSA,Total (Free>4and<10) 1.25 ng/mL (0.00-4.00)
== END 2025-06-27 09:46 | disposition home or self-care (01) ==
LOC: HO.LNP 09:45
PROVIDERS: Visit Provider Internal Medicine
DX: Z00.00 Encounter for general adult medical examination without abnormal findings (principal); R73.09 Other abnormal glucose; I10 Essential (primary) hypertension; Z12.5 Encounter for screening for malignant neoplasm of prostate
CPT/HCPCS: 80053; 80061; 81001; 82043; 82570; 83036; 84153; 85025